=== PATIENT | female | born 1980 | race American Indian/Alaskan Native ===

== ENCOUNTER 2017-02-15 20:03 | Emergency (ER) | payer MEDICARE ==
[2017-02-15 21:14] VITALS: BP 143/84
== END 2017-02-15 23:59 | disposition left against medical advice (07) ==
LOC: ED 20:03
DX: Z53.21 Procedure and treatment not carried out due to patient leaving prior to being seen by health care provider (principal)

== ENCOUNTER 2018-01-15 01:32 | Emergency (ER) | payer MEDICARE ==
[2018-01-15] MEDS ORDERED: ASPIRIN PO ONE (03:21)
[2018-01-15 04:04] LABS: Basophils % (Auto) 0.3 % (0.0-1.8); Eosinophils # (Auto) 0.2 K/mm3 (0.0-0.4); Eosinophils % (Auto) 3.6 % (0.0-4.3); Hemoglobin 11.9 gm/dl (10.1-14.3); Lymphocytes # (Auto) 1.9 K/mm3 (1.2-5.4); Lymphocytes % (Auto) 35.8 % (13.4-35.0); Mean Corpuscular HGB Conc 33 % (30-34); Mean Corpuscular Volume 76 fl (79-97); Monocytes # (Auto) 0.4 K/mm3 (0.0-0.8); Monocytes % (Auto) 7.3 % (0.0-7.3); Platelet Count 190 K/mm3 (140-440); Red Blood Count 4.75 M/mm3 (3.65-5.03); Red Cell Distribution Width 15.7 % (13.2-15.2)
--- NOTE | 2018-01-15 04:06 | Emergency Department Report ---
ED Chest Pain HPI - General Chief Complaint: Chest Pain Stated Complaint: CHEST PRESSURE Time Seen by Provider: 01/15/18 02:24 Source: patient, EMS Mode of arrival: Stretcher Limitations: Physical Limitation - History of Present Illness Initial Comments: 37-year-old female with history of MS and also PE, which was diagnosed on last month currently on Eliquis, presents to the ED with complaints of chest pain and shortness of breath that started tonight. Patient states pain is pressure- like, located in the left chest, with tingling sensation in left arm. Patient reports left arm tingling has resolved however pressure remains. Patient states pain feels like it did last month when she was diagnosed with her PE. Pt Has MS and states that she is not ambulatory. Patient states usually gets around in a wheelchair. MD Complaint: chest pain -: During the night Onset: during rest Pain Location: left chest Pain Radiation: none Severity: moderate Quality: pressure Consistency: constant Improves With: nothing Worsens With: nothing re: dyspnea. denies: nausea, vomting Other Symptoms: denies: fever - Related Data Home Medications Medication Instructions Recorded Confirmed Last Taken Glatiramer Acetate [Copaxone] 40 mg SQ Q3D 12/01/17 12/01/17 Unknown Previous Rx's Medication Instructions Recorded Last Taken Type Apixaban [Eliquis] 5 mg PO Q12HR #60 tablet 12/02/17 Unknown Rx Apixaban [Eliquis] 10 mg PO Q12HR #13 tablet 12/02/17 Unknown Rx amLODIPine [Norvasc] 10 mg PO QDAY #30 tablet 12/02/17 Unknown Rx Pantoprazole [Protonix TAB] 40 mg PO QDAY #30 tablet 12/03/17 Unknown Rx Allergies Allergy/AdvReac Type Severity Reaction Status Date / Time No Known Allergies Allergy Unverified 02/15/17 21:07 Heart Score - HEART Score History: Slightly suspicious EKG: Normal Age: < 45 Risk factors: 1-2 risk factors Troponin: < normal limit HEART Score: 1 - Critical Actions Critical Actions: 0-3 pts:0.9-1.7%risk of adverse cardiac event.Candidate for discharge ED Review of Systems ROS: Stated complaint: CHEST PRESSURE Other details as noted in HPI Comment: All other systems reviewed and negative Constitutional: denies: fever Respiratory: shortness of breath Cardiovascular: chest pain ED Past Medical Hx - Past Medical History Previous Medical History?: Yes Additional medical history: MS PE - Surgical History Past Surgical History?: Yes Additional Surgical History: x1 - Social History Smoking Status: Never Smoker Substance Use Type: Alcohol - Medications Home Medications: Home Medications Medication Instructions Recorded Confirmed Last Taken Type Glatiramer Acetate [Copaxone] 40 mg SQ Q3D 12/01/17 12/01/17 Unknown History Apixaban [Eliquis] 5 mg PO Q12HR #60 tablet 12/02/17 Unknown Rx Apixaban [Eliquis] 10 mg PO Q12HR #13 tablet 12/02/17 Unknown Rx amLODIPine [Norvasc] 10 mg PO QDAY #30 tablet 12/02/17 Unknown Rx Pantoprazole [Protonix TAB] 40 mg PO QDAY #30 tablet 12/03/17 Unknown Rx ED Physical Exam - General Limitations: Physical Limitation General appearance: alert, in no apparent distress - Head Head exam: Present: atraumatic, normocephalic - Eye Eye exam: Present: normal appearance - ENT ENT exam: Present: mucous membranes moist - Neck Neck exam: Present: normal inspection - Respiratory Respiratory exam: Present: normal lung sounds bilaterally. Absent: respiratory distress - Cardiovascular Cardiovascular Exam: Present: regular rate, normal rhythm - GI/Abdominal GI/Abdominal exam: Present: soft. Absent: tenderness - Extremities Exam Extremities exam: Present: pedal edema - Neurological Exam Neurological exam: Present: alert, oriented X3 - Psychiatric Psychiatric exam: Present: normal affect, normal mood - Skin Skin exam: Present: warm, dry, intact, normal color ED Course Vital Signs 01/15/18 02:26 Temperature 97.6 F Pulse Rate 76 Blood Pressure 138/67 O2 Sat by Pulse 100 Oximetry - Reevaluation(s) Reevaluation #1: 01/15/18 06:10 Pt states chest pain has resolved. ADELSO score - Adelso Score Age > 65: (0) No Aspirin use within the Past 7 Days: (0) No 3 or more CAD Risk Factors: (0) No 2 or more Angina events in past 24 hrs: (0) No Known CAD with more than 50% Stenosis: (0) No Elevated Cardiac Markers: (0) No ST Deviation Greater than 0.5mm: (0) No ADELSO Score: 0 ED Medical Decision Making - Lab Data Result diagrams: 01/15/18 03:32 01/15/18 03:32 - EKG Data -: EKG Interpreted by Me EKG shows normal: sinus rhythm, axis, intervals, QRS complexes, ST-T waves - EKG Data Interpretation: normal EKG - Radiology Data Radiology results: report reviewed, image reviewed - Medical Decision Making 37-year-old female with history of PE presents to ED with sinus shortness of breath. EKG and troponin normal. Patient had stress test last month that was normal. D-dimer sent today and also in the normal range. Patient already on Eliquis for PE. Patient is not hypoxic or tachycardic. Vital signs stable. She states chest pain and shortness of breath have both resolved. Workup unremarkable. Advised patient to follow up with PCP. - Differential Diagnosis pulm edema, ACS, PE Critical care attestation.: If time is entered above; I have spent that time in minutes in the direct care of this critically ill patient, excluding procedure time. ED Disposition Clinical Impression: Chest pain Disposition: DC-01 TO HOME OR SELFCARE Is pt being admited?: No Condition: Stable Instructions: Chest Pain (ED) Referrals: PRIMARY CARE, [Primary Care Provider] - 3-5 Days Time of Disposition: 06:15
[2018-01-15 04:10] LABS: Mean Corpuscular Hemoglobin 25 pg (28-32)
[2018-01-15 04:23] LABS: BUN/Creatinine Ratio 12; Blood Urea Nitrogen 11 mg/dL (7-17); Calcium 8.9 mg/dL (8.4-10.2); Hemolysis Index 4
--- NOTE | 2018-01-15 04:53 | XRay Report ---
FINAL REPORT PROCEDURE: XR CHEST 1V AP TECHNIQUE: Chest radiograph anteroposterior view. CPT 87065 HISTORY: chest pain COMPARISON: 11/30/2017 FINDINGS: Heart: Normal. Mediastinum/Vessels: Normal. Lungs/Pleural space: Normal. Bony thorax: No acute osseous abnormality. Life support devices: None. IMPRESSION: No acute cardiopulmonary abnormality.
[2018-01-15 07:55] VITALS: BP 121/64
== END 2018-01-15 07:22 | disposition home or self-care (01) ==
LOC: ED 01:32
DX: R07.89 Other chest pain (principal); R06.02 Shortness of breath
CPT/HCPCS: 36415; 71045; 80048; 84484; 84703; 85025; 85379; 93005; 93010; 99285